=== PATIENT | female | born 1965 | race African-American/Black ===

== ENCOUNTER 2018-04-06 17:24 | Emergency (ER) | payer MEDICAID ==
[~2018-04-06] VITALS: Ht 160 cm; Wt 60.0 kg
[2018-04-06 18:59] LABS: CHLORIDE 108 mEq/L (98-107)
[2018-04-06 19:00] LABS: BASOPHILS % 0.4 % (0.0-2.0); EOSINOPHILS % 1.7 % (0.0-5.0); HEMATOCRIT. 30.3 % (36.0-48.0); HEMOGLOBIN. 9.9 g/dL (12.0-16.0); LYMPHOCYTES % 47.5 % (20.0-50.0); MEAN CORPUSCULAR HEMOGLOBIN 30.6 pg (28.0-32.0); MEAN CORPUSCULAR VOLUME 93.5 fL (81.0-99.0); MEAN PLATELET VOLUME 8.7 fl (7.4-10.4); MONOCYTES % 8.8 % (2.0-8.0); NEUTROPHILS % 41.6 % (40.0-76.0); PLATELET 170 x1000/uL (130-400); RED BLOOD CELL COUNT 3.24 mill/uL (4.2-5.4); RED CELL DISTRIBUTION WIDTH 16.1 % (11.6-14.6)
[2018-04-06 22:00] VITALS: BP 135/80
== END 2018-04-06 22:09 | disposition home or self-care (01) ==
LOC: ER 17:24
DX: R60.0 Localized edema (principal); E11.9 Type 2 diabetes mellitus without complications; I11.0 Hypertensive heart disease with heart failure; I50.9 Heart failure, unspecified; F17.200 Nicotine dependence, unspecified, uncomplicated; E87.8 Other disorders of electrolyte and fluid balance, not elsewhere classified
CPT/HCPCS: 36415; 71045; 80053; 83880; 85025; 93970; 99285

== ENCOUNTER 2018-06-17 06:41 | Emergency (ER) | payer MEDICAID ==
[~2018-06-17] VITALS: Ht 177.8 cm; Wt 91.0 kg
[2018-06-17 08:01] LABS: BASOPHILS % 0.3 % (0.0-2.0); EOSINOPHILS % 1.4 % (0.0-5.0); HEMATOCRIT. 37.2 % (36.0-48.0); HEMOGLOBIN. 12.4 g/dL (12.0-16.0); LYMPHOCYTES % 41.3 % (20.0-50.0); MEAN CORPUSCULAR HEMOGLOBIN 30.7 pg (28.0-32.0); MEAN CORPUSCULAR VOLUME 91.9 fL (81.0-99.0); MEAN PLATELET VOLUME 8.7 fl (7.4-10.4); MONOCYTES % 11.3 % (2.0-8.0); NEUTROPHILS % 45.7 % (40.0-76.0); PLATELET 160 x1000/uL (130-400); RED BLOOD CELL COUNT 4.05 mill/uL (4.2-5.4)
[2018-06-17 08:04] LABS: CHLORIDE 105 mEq/L (98-107)
[2018-06-17] MEDS ORDERED: ACETAMINOPHEN 650MG/20.3ML UDC PO ONE (11:15)
[2018-06-17 11:55] VITALS: BP 117/61
== END 2018-06-17 12:24 | disposition home or self-care (01) ==
LOC: ER 06:41
DX: R41.82 Altered mental status, unspecified (principal); J45.909 Unspecified asthma, uncomplicated; E11.9 Type 2 diabetes mellitus without complications; R56.9 Unspecified convulsions
CPT/HCPCS: 36415; 71045; 80053; 82962; 83880; 84484; 85025; 85610; 93005; 99285

== ENCOUNTER 2018-07-13 06:39 | Emergency (ER) | payer MEDICAID ==
[~2018-07-13] VITALS: Ht 162.6 cm; Wt 71.0 kg
[2018-07-13] MEDS ORDERED: SODIUM CHLORIDE 0.9% 1,000 ML IV ONE ×2 (06:57→08:25)
[2018-07-13] MEDS ORDERED: LEVETIRACETAM 500MG PREMIX 100 ML IV ONE (07:00)
[2018-07-13] MEDS ORDERED: CLONIDINE 0.1MG TABLET PO ONE (07:00)
[2018-07-13 07:30] LABS: BASOPHILS % 0.5 % (0.0-2.0); EOSINOPHILS % 2.2 % (0.0-5.0); HEMATOCRIT. 40.7 % (36.0-48.0); HEMOGLOBIN. 13.1 g/dL (12.0-16.0); LYMPHOCYTES % 53.7 % (20.0-50.0); MEAN CORPUSCULAR HEMOGLOBIN 29.9 pg (28.0-32.0); MEAN CORPUSCULAR VOLUME 92.9 fL (81.0-99.0); MEAN PLATELET VOLUME 9.1 fl (7.4-10.4); MONOCYTES % 11.3 % (2.0-8.0); NEUTROPHILS % 32.3 % (40.0-76.0); PLATELET 176 x1000/uL (130-400); RED BLOOD CELL COUNT 4.38 mill/uL (4.2-5.4); RED CELL DISTRIBUTION WIDTH 14.6 % (11.6-14.6)
[2018-07-13 07:34] LABS: CHLORIDE 111 mEq/L (98-107)
[2018-07-13] MEDS ORDERED: SODIUM BICARBONATE 8.4% 1 MEQ/ML 50ML SYR IV ONE (08:30)
[2018-07-13] MEDS ORDERED: IPRATROPIUM BROMIDE (0.02%) 0.5MG/2.5ML NEB HHN STA (08:32)
[2018-07-13] MEDS ORDERED: METHYLPREDNISOLONE SOD SUCC 125 MG/2 ML VIAL IV STA (08:32)
[2018-07-13] MEDS ORDERED: ALBUTEROL (0.083%) 2.5MG/3ML NEB HHN STA (08:32)
[2018-07-13 10:44] VITALS: BP 140/70
== END 2018-07-13 10:52 | disposition home or self-care (01) ==
LOC: ER 06:39
DX: R56.9 Unspecified convulsions (principal); I10 Essential (primary) hypertension; E87.5 Hyperkalemia; J45.901 Unspecified asthma with (acute) exacerbation; F31.9 Bipolar disorder, unspecified; E11.9 Type 2 diabetes mellitus without complications; F20.9 Schizophrenia, unspecified; F17.200 Nicotine dependence, unspecified, uncomplicated; Z98.890 Other specified postprocedural states
CPT/HCPCS: 36415; 71045; 80048; 80053; 85025; 93005; 94644; 96365; 96375; 99285; J1953; J2930; J3490; J7030; J7611; Z7610

== ENCOUNTER 2018-09-14 06:13 | Emergency (ER) | payer MEDICAID ==
[~2018-09-14] VITALS: Ht 167.6 cm; Wt 82.0 kg
[2018-09-14] MEDS ORDERED: LEVETIRACETAM 500MG TABLET PO ONE (06:30)
[2018-09-14 06:35] LABS: BASOPHILS % 0.5 % (0.0-2.0); EOSINOPHILS % 1.9 % (0.0-5.0); HEMATOCRIT. 43.1 % (36.0-48.0); HEMOGLOBIN. 13.8 g/dL (12.0-16.0); LYMPHOCYTES % 48.6 % (20.0-50.0); MEAN CORPUSCULAR HEMOGLOBIN 29.4 pg (28.0-32.0); MEAN CORPUSCULAR VOLUME 91.8 fL (81.0-99.0); MEAN PLATELET VOLUME 8.8 fl (7.4-10.4); MONOCYTES % 8.8 % (2.0-8.0); NEUTROPHILS % 40.2 % (40.0-76.0); PLATELET 167 x1000/uL (130-400); RED BLOOD CELL COUNT 4.69 mill/uL (4.2-5.4); RED CELL DISTRIBUTION WIDTH 16.1 % (11.6-14.6)
[2018-09-14 06:52] LABS: CHLORIDE 107 mEq/L (98-107)
[2018-09-14] MEDS ORDERED: CLONIDINE 0.1MG TABLET PO ONE (08:30)
[2018-09-14 10:16] VITALS: BP 138/90
== END 2018-09-14 10:41 | disposition home or self-care (01) ==
LOC: ER 06:13
DX: G40.89 Other seizures (principal); J45.909 Unspecified asthma, uncomplicated; E11.9 Type 2 diabetes mellitus without complications; I10 Essential (primary) hypertension; F20.9 Schizophrenia, unspecified; F31.9 Bipolar disorder, unspecified; Z59.0 Homelessness
CPT/HCPCS: 36415; 71045; 93005; 99284

== ENCOUNTER 2018-10-02 06:25 | Inpatient (IN) | payer MEDICAID ==
[~2018-10-02] VITALS: Ht 167.6 cm; Wt 70.1 kg
[2018-10-02] MEDS ORDERED: LORAZEPAM 2MG/ML CPJ IM ONE (07:30)
[2018-10-02] MEDS ORDERED: LEVETIRACETAM 500MG PREMIX 100 ML IV ONE ×2 (07:30)
[2018-10-02] MEDS ORDERED: LORAZEPAM 2MG/ML CPJ ONE (07:35)
[2018-10-02] MEDS ORDERED: DEXTROSE 50% WATER 50ML SYRINGE IV ONE (08:15)
[2018-10-02 08:58] LABS: BASOPHILS % 0.4 % (0.0-2.0); EOSINOPHILS % 2.4 % (0.0-5.0); HEMATOCRIT. 37.1 % (36.0-48.0); HEMOGLOBIN. 11.9 g/dL (12.0-16.0); LYMPHOCYTES % 50.8 % (20.0-50.0); MEAN CORPUSCULAR HEMOGLOBIN 29.5 pg (28.0-32.0); MEAN CORPUSCULAR VOLUME 91.8 fL (81.0-99.0); MONOCYTES % 11.9 % (2.0-8.0); NEUTROPHILS % 34.5 % (40.0-76.0); PLATELET 155 x1000/uL (130-400); RED BLOOD CELL COUNT 4.04 mill/uL (4.2-5.4); RED CELL DISTRIBUTION WIDTH 16.8 % (11.6-14.6)
[2018-10-02 09:07] LABS: CHLORIDE 108 mEq/L (98-107)
[2018-10-02 09:14] LABS: ETHANOL BLOOD < 10 mg/dL
[2018-10-02 09:31] LABS: CLARITY URINE CLEAR (CLEAR); COLOR URINE YELLOW (YELLOW); KETONES URINE NEGATIVE (NEGATIVE); LEUKOCYTE ESTERASE URINE TRACE (NEGATIVE); NITRITE URINE POSITIVE (NEGATIVE); OCCULT BLOOD URINE NEGATIVE (NEGATIVE); PROTEIN URINE NEGATIVE (NEGATIVE); SPECIFIC GRAVITY URINE 1.008 (1.005-1.030); UROBILINOGEN URINE 0.2 E.U./dL (0.2-1.0)
[2018-10-02 10:19] LABS: *AMPHETAMINES SCREEN URINE NEGATIVE (NEGATIVE); *BARBITURATES SCREEN URINE NEGATIVE (NEGATIVE); *BENZODIAZEPINES SCREEN URINE NEGATIVE (NEGATIVE)
[2018-10-02 10:20] LABS: *COCAINE SCREEN URINE NEGATIVE (NEGATIVE); CANNABINOID URINE SCREEN NEGATIVE (NEGATIVE); OPIATES URINE SCREEN NEGATIVE (NEGATIVE); PHENCYCLIDINE URINE SCREEN NEGATIVE (NEGATIVE)
[2018-10-02 10:21] LABS: METHADONE URINE SCREEN NEGATIVE (NEGATIVE)
[2018-10-02 20:15] VITALS: BP 100/74
[2018-10-02 21:00] VITALS: BP 100/74
[2018-10-02] MEDS ORDERED: ONDANSETRON HCL 4MG/2ML INJ IV PRN (23:15)
[2018-10-02] MEDS ORDERED: CLONIDINE 0.1MG TABLET PO PRN (23:15)
[2018-10-02] MEDS ORDERED: LORAZEPAM 2MG/ML CPJ IV PRN (23:15)
[2018-10-02] MEDS ORDERED: DEXTROSE 50% WATER 50ML SYRINGE IV PRN (23:15)
[2018-10-02] MEDS: LEVETIRACETAM 500MG TABLET PO SCH (23:33)
[2018-10-03] VITALS: BP 114/65
[2018-10-03] MEDS: CEFTRIAXONE 1 G PREMIX 50 ML IV SCH (02:13)
[2018-10-03] MEDS: SODIUM CHLORIDE 0.9% 1,000 ML IV SCH ×3 (02:13→23:15)
[2018-10-03 04:00] VITALS: BP 127/79
[2018-10-03] MEDS: BLOOD SUGAR DIAGNOSTIC STRIP TEST SCH ×4 (07:07→21:51)
[2018-10-03] MEDS: INSULIN LISPRO 100 UNITS/ML SUBCUT SCH ×4 (07:08→21:00)
[2018-10-03 07:10] LABS: BASOPHILS % 0.5 % (0.0-2.0); EOSINOPHILS % 2.1 % (0.0-5.0); HEMATOCRIT. 40.2 % (36.0-48.0); HEMOGLOBIN. 12.9 g/dL (12.0-16.0); LYMPHOCYTES % 46.9 % (20.0-50.0); MEAN CORPUSCULAR HEMOGLOBIN 29.4 pg (28.0-32.0); MEAN CORPUSCULAR VOLUME 91.9 fL (81.0-99.0); MEAN PLATELET VOLUME 9.3 fl (7.4-10.4); MONOCYTES % 9.3 % (2.0-8.0); NEUTROPHILS % 41.2 % (40.0-76.0); PLATELET 158 x1000/uL (130-400); RED BLOOD CELL COUNT 4.38 mill/uL (4.2-5.4); RED CELL DISTRIBUTION WIDTH 16.3 % (11.6-14.6)
[2018-10-03 08:00] VITALS: BP 140/78
[2018-10-03] MEDS: LEVETIRACETAM 500MG TABLET PO SCH ×2 (08:16→21:51)
[2018-10-03] MEDS: ENOXAPARIN 30MG/0.3ML SYR SUBCUT SCH ×2 (08:16→21:51)
[2018-10-03 12:00] VITALS: BP 119/61
[2018-10-03] MEDS ORDERED: SODIUM POLYSTYRENE SULFONATE 15 G/60 ML BOT PO NR (12:30)
[2018-10-03 16:00] VITALS: BP 140/81
[2018-10-03 20:00] VITALS: BP 129/78
[2018-10-04] VITALS: BP 118/68
[2018-10-04] MEDS: CEFTRIAXONE 1 G PREMIX 50 ML IV SCH (02:18)
[2018-10-04 04:00] VITALS: BP 120/60
[2018-10-04] MEDS: INSULIN LISPRO 100 UNITS/ML SUBCUT SCH ×4 (06:11→21:00)
[2018-10-04] MEDS: BLOOD SUGAR DIAGNOSTIC STRIP TEST SCH ×4 (06:11→21:34)
[2018-10-04 08:00] VITALS: BP 118/76
[2018-10-04] MEDS: LEVETIRACETAM 500MG TABLET PO SCH ×2 (08:56→21:35)
[2018-10-04] MEDS: ENOXAPARIN 30MG/0.3ML SYR SUBCUT SCH ×2 (08:56→21:36)
[2018-10-04 12:00] VITALS: BP 125/77
[2018-10-04] MEDS: SODIUM CHLORIDE 0.9% 1,000 ML IV SCH (15:30)
[2018-10-04 16:00] VITALS: BP 99/60
[2018-10-04 20:00] VITALS: BP 100/54
[2018-10-05] VITALS: BP 99/57
[2018-10-05] MEDS: SODIUM CHLORIDE 0.9% 1,000 ML IV SCH ×3 (00:16→18:10)
[2018-10-05] MEDS: CEFTRIAXONE 1 G PREMIX 50 ML IV SCH (00:17)
[2018-10-05 04:00] VITALS: BP 124/65
[2018-10-05] MEDS: INSULIN LISPRO 100 UNITS/ML SUBCUT SCH ×4 (06:06→21:00)
[2018-10-05] MEDS: BLOOD SUGAR DIAGNOSTIC STRIP TEST SCH ×4 (06:06→21:03)
[2018-10-05 08:00] VITALS: BP 114/65
[2018-10-05] MEDS: ENOXAPARIN 30MG/0.3ML SYR SUBCUT SCH ×2 (10:00→21:03)
[2018-10-05] MEDS: LEVETIRACETAM 500MG TABLET PO SCH ×2 (10:00→21:02)
[2018-10-05 12:00] VITALS: BP 128/73
[2018-10-05 16:00] VITALS: BP 126/61
[2018-10-05 20:00] VITALS: BP 101/64
[2018-10-06] VITALS: BP 117/81
[2018-10-06] MEDS: CEFTRIAXONE 1 G PREMIX 50 ML IV SCH (01:19)
[2018-10-06] MEDS: SODIUM CHLORIDE 0.9% 1,000 ML IV SCH (03:40)
[2018-10-06 04:00] VITALS: BP 139/67
[2018-10-06] MEDS: BLOOD SUGAR DIAGNOSTIC STRIP TEST SCH ×4 (05:44→20:08)
[2018-10-06] MEDS: INSULIN LISPRO 100 UNITS/ML SUBCUT SCH ×4 (05:44→20:14)
[2018-10-06 08:00] VITALS: BP 128/70
[2018-10-06] MEDS: LEVETIRACETAM 500MG TABLET PO SCH ×2 (08:21→20:07)
[2018-10-06] MEDS: ENOXAPARIN 30MG/0.3ML SYR SUBCUT SCH ×2 (08:21→20:08)
[2018-10-06 12:00] VITALS: BP 129/69
[2018-10-06 16:00] VITALS: BP 122/66
[2018-10-06 20:00] VITALS: BP 97/73
[2018-10-07] VITALS: BP 125/73
[2018-10-07] MEDS: CEFTRIAXONE 1 G PREMIX 50 ML IV SCH (03:09)
[2018-10-07 04:00] VITALS: BP 141/74
[2018-10-07] MEDS: BLOOD SUGAR DIAGNOSTIC STRIP TEST SCH ×4 (06:24→20:49)
[2018-10-07] MEDS: INSULIN LISPRO 100 UNITS/ML SUBCUT SCH ×4 (06:25→20:49)
[2018-10-07 08:00] VITALS: BP 121/70
[2018-10-07] MEDS: LEVETIRACETAM 500MG TABLET PO SCH ×2 (09:17→20:49)
[2018-10-07] MEDS: ENOXAPARIN 30MG/0.3ML SYR SUBCUT SCH ×2 (09:18→20:49)
[2018-10-07 12:00] VITALS: BP 114/64
[2018-10-07 16:00] VITALS: BP 110/71
[2018-10-07 20:00] VITALS: BP 108/70
[2018-10-08] VITALS: BP 111/70
[2018-10-08] MEDS: CEFTRIAXONE 1 G PREMIX 50 ML IV SCH (01:14)
[2018-10-08 04:00] VITALS: BP 105/69
[2018-10-08] MEDS: BLOOD SUGAR DIAGNOSTIC STRIP TEST SCH ×4 (06:42→20:50)
[2018-10-08] MEDS: INSULIN LISPRO 100 UNITS/ML SUBCUT SCH ×4 (06:42→20:50)
[2018-10-08] MEDS ORDERED: LORAZEPAM 2MG/ML CPJ IV PRN (07:22)
[2018-10-08 08:00] VITALS: BP 109/68
[2018-10-08] MEDS ORDERED: LEVETIRACETAM 750 MG in SODIUM CHLORIDE 0.9% 100 ML IV SCH (10:00)
[2018-10-08] MEDS: LEVETIRACETAM 750 MG in SODIUM CHLORIDE 0.9% 100 ML IV SCH ×2 (10:39→20:31)
[2018-10-08] MEDS: ENOXAPARIN 40MG/0.4ML SYR SUBCUT SCH (10:40)
[2018-10-08 12:00] VITALS: BP 103/65
[2018-10-08 16:00] VITALS: BP 99/54
[2018-10-08 20:00] VITALS: BP 93/61
[2018-10-09] VITALS: BP 85/54
[2018-10-09] MEDS: CEFTRIAXONE 1 G PREMIX 50 ML IV SCH (01:23)
[2018-10-09 04:00] VITALS: BP 96/57
[2018-10-09] MEDS: BLOOD SUGAR DIAGNOSTIC STRIP TEST SCH ×4 (06:19→20:59)
[2018-10-09] MEDS: INSULIN LISPRO 100 UNITS/ML SUBCUT SCH ×4 (06:19→20:59)
[2018-10-09 08:00] VITALS: BP 99/57
[2018-10-09] MEDS: ENOXAPARIN 40MG/0.4ML SYR SUBCUT SCH (08:26)
[2018-10-09] MEDS: LEVETIRACETAM 750 MG in SODIUM CHLORIDE 0.9% 100 ML IV SCH ×2 (09:31→20:57)
[2018-10-09 12:00] VITALS: BP 125/54
[2018-10-09 16:00] VITALS: BP 112/69
[2018-10-09 20:00] VITALS: BP 90/52
[2018-10-10] VITALS: BP 94/58
[2018-10-10] MEDS: CEFTRIAXONE 1 G PREMIX 50 ML IV SCH (01:32)
[2018-10-10 04:00] VITALS: BP 110/57
[2018-10-10] MEDS: BLOOD SUGAR DIAGNOSTIC STRIP TEST SCH ×4 (06:43→20:42)
[2018-10-10] MEDS: INSULIN LISPRO 100 UNITS/ML SUBCUT SCH ×4 (06:43→20:42)
[2018-10-10 08:00] VITALS: BP 99/55
[2018-10-10] MEDS: ENOXAPARIN 40MG/0.4ML SYR SUBCUT SCH (08:44)
[2018-10-10] MEDS: LEVETIRACETAM 750 MG in SODIUM CHLORIDE 0.9% 100 ML IV SCH ×2 (10:15→21:16)
[2018-10-10 12:00] VITALS: BP 112/67
[2018-10-10 16:00] VITALS: BP 114/68
[2018-10-10 20:00] VITALS: BP 98/55
[2018-10-11] VITALS: BP 95/53
[2018-10-11 04:00] VITALS: BP 105/56
[2018-10-11] MEDS: BLOOD SUGAR DIAGNOSTIC STRIP TEST SCH ×4 (06:17→20:39)
[2018-10-11] MEDS: INSULIN LISPRO 100 UNITS/ML SUBCUT SCH ×4 (06:17→20:39)
[2018-10-11 08:00] VITALS: BP 98/65
[2018-10-11] MEDS: LEVETIRACETAM 500MG TABLET PO SCH ×2 (08:50→20:39)
[2018-10-11] MEDS: ENOXAPARIN 40MG/0.4ML SYR SUBCUT SCH (08:53)
[2018-10-11 12:00] VITALS: BP 103/62
[2018-10-11 16:00] VITALS: BP 112/74
[2018-10-11 20:00] VITALS: BP 98/65
[2018-10-12] VITALS: BP 106/70
[2018-10-12 04:00] VITALS: BP 117/67
[2018-10-12] MEDS: BLOOD SUGAR DIAGNOSTIC STRIP TEST SCH ×4 (06:30→20:24)
[2018-10-12] MEDS: INSULIN LISPRO 100 UNITS/ML SUBCUT SCH ×4 (06:31→20:24)
[2018-10-12 08:00] VITALS: BP 113/70
[2018-10-12] MEDS: ENOXAPARIN 40MG/0.4ML SYR SUBCUT SCH (09:06)
[2018-10-12] MEDS: LEVETIRACETAM 500MG TABLET PO SCH ×2 (09:06→20:24)
[2018-10-12 12:00] VITALS: BP 92/50
[2018-10-12 16:00] VITALS: BP 101/69
[2018-10-12 20:00] VITALS: BP 92/66
[2018-10-13] VITALS: BP 95/64
[2018-10-13 04:00] VITALS: BP 112/70
[2018-10-13] MEDS: BLOOD SUGAR DIAGNOSTIC STRIP TEST SCH ×2 (07:10→12:10)
[2018-10-13] MEDS: INSULIN LISPRO 100 UNITS/ML SUBCUT SCH ×2 (07:40→12:40)
[2018-10-13 08:00] VITALS: BP 131/86
[2018-10-13] MEDS: LEVETIRACETAM 500MG TABLET PO SCH (08:48)
[2018-10-13] MEDS: ENOXAPARIN 40MG/0.4ML SYR SUBCUT SCH (08:49)
[2018-10-13 12:07] VITALS: BP 124/76
[2018-10-13 16:10] VITALS: BP 106/76
== END 2018-10-13 16:20 | disposition left against medical advice (07) | DRG 53 ==
LOC: ER 06:25 → 5WST 13:04 → EDBEDREQTM 13:06 → EDBEDREQ 13:06 → ENRESERV 18:45 → 8WST 10-08 16:31
PROVIDERS: ADMIT Internal Medicine; ATTEND Internal Medicine
DX: G40.909 Epilepsy, unspecified, not intractable, without status epilepticus (principal); E44.0 Moderate protein-calorie malnutrition; E87.5 Hyperkalemia; F20.9 Schizophrenia, unspecified; E11.9 Type 2 diabetes mellitus without complications; N39.0 Urinary tract infection, site not specified; I10 Essential (primary) hypertension; J45.909 Unspecified asthma, uncomplicated; Z53.21 Procedure and treatment not carried out due to patient leaving prior to being seen by health care provider; Z91.14 Patient's other noncompliance with medication regimen; Z59.0 Homelessness; Z91.19 Patient's noncompliance with other medical treatment and regimen; Z86.73 Personal history of transient ischemic attack (TIA), and cerebral infarction without residual deficits; Z87.440 Personal history of urinary (tract) infections; Z68.24 Body mass index [BMI] 24.0-24.9, adult; Z79.899 Other long term (current) drug therapy
CPT/HCPCS: 36415; 70551; 71045; 80048; 80185; 80305; 80307; 80329; 82962; 83036; 87077; 87186; 96365; 96375; 97116; 97162; 97530; 99285; C1893; G0482; J0696; J1650; J1815; J1953; J2060; J7030; J7050